=== PATIENT | female | born 1955 | race Caucasian/White ===

== ENCOUNTER 2017-05-09 17:14 | Inpatient (IN) | payer BC ==
--- NOTE | ~2017-05-09 | EKG ---
PATIENT: THEE HINDS UNIT #: [id number] Ventricular Rate: 141 BPM Atrial Rate: 141 BPM P-R Interval: 132 ms QRS Duration: 68 ms Q-T Interval: 278 ms QTC Calculation(Bezet): 425 ms P [place]: 45 degrees Calculated R [place]: 27 degrees Calculated T [place]: 46 degrees Diagnosis Line: Sinus tachycardia Diagnosis Line: Nonspecific ST abnormality Diagnosis Line: Abnormal ECG Diagnosis Line: No previous ECGs available Diagnosis Line: Confirmed by DARION MAEDRA MD ([id number]) on Diagnosis Line: 05/09/2017 10:23:13 PM INTERPRETING MD: FOX
--- NOTE | ~2017-05-09 | HP ---
Unit #: [id number] #: [id number] Patient: THEE HINDS [id number] [address] [place], [place] [address] [id number] I MR#: [id number] NAME: THEE HINDS ROOM: 8[address]15 Age: 61 Sex: F Admission Date: 05/09/2017 : 1955 Attending Physician: Sarah Almodovar M.D. HISTORY AND PHYSICAL CHIEF COMPLAINT Pyelonephritis with sepsis. HISTORY OF PRESENT ILLNESS This pleasant 61-year-old female with AODM and hypertension is admitted for pyelonephritis with sepsis. The patient was well until yesterday when she developed fevers, chills, nausea, and vomiting. She noted some increasing right lower flank pain but no other urinary symptoms except for urinary hesitancy. Her symptoms worsened today around 3 o'clock, and this was also associated with lightheadedness. She presented to the emergency department this evening with a temperature of 103.8. She was bolused with two liters of saline and given Tylenol, Zofran, and one gram of Rocephin after her urinalysis showed significant pyuria. PAST MEDICAL HISTORY 1. Hypothyroidism. 2. Hyperlipidemia. 3. Gastroesophageal reflux disease. 4. Diverticular disease requiring partial colon resection. 5. Adult-onset diabetes mellitus x1 year. 6. Depression. 7. Chronic low back pain with left lumbar radiculopathy. 8. Tachycardia. 9. Cholecystectomy. 10. Bilateral carpal tunnel release. ALLERGIES No known drug allergies. HOME MEDICATIONS 1. Synthroid 0.15 mg daily. 2. Lexapro 10 mg daily. 3. Metformin 500 mg daily. 4. Crestor 40 mg daily. 5. Zanaflex 4 mg b.i.d. 6. Avapro 150 mg daily. 7. Nasonex 2 sprays daily. 8. Neurontin 600 mg b.i.d. to q.i.d. 9. Metoprolol 100 mg b.i.d. 10. Zyrtec 10 mg daily. 11. Aspirin 81 mg daily. Unit #: [id number] #: [id number] Patient: THEE HINDS FAMILY HISTORY Diabetes mellitus. SOCIAL HISTORY The patient lives with her . 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 She is a lifelong nonsmoker and does not drink alcohol. REVIEW OF SYSTEMS Notable for urinary hesitancy, flank pain, fever, sweats, chills, nausea, vomiting, lightheadedness, hypothyroidism, hyperlipidemia, GERD, diverticular disease, diabetes, chronic back pain, depression, tachycardia, and above-mentioned surgeries. All other systems were reviewed and are otherwise negative. PHYSICAL EXAMINATION GENERAL: A pleasant, moderately obese, 61-year-old female currently in no acute distress. She is diaphoretic. VITAL SIGNS: Temperature 103.8, pulse was originally 150, and current heart rate now is about 110, respirations 22, initial blood pressure 156/71, and current blood pressure is 99/50, and O2 saturation 94% on room air. HEENT: Eyes PERRLA. Extraocular muscles are intact. Pharynx is benign. NECK: Supple without adenopathy or thyromegaly. CHEST: Clear. BACK: Low right flank percussion tenderness. CARDIAC: Slightly tachy S1 and S2, without murmur. ABDOMEN: Bowel sounds are present. No hepatosplenomegaly, tenderness, or masses. EXTREMITIES: Without clubbing, cyanosis, or edema. Pedal pulses are present. No ulcers on the feet. NEUROLOGIC: Patient is awake, alert, and oriented. Cranial nerves are intact. Equal strength throughout. DIAGNOSTIC STUDIES ADMISSION LABORATORY: Hematocrit is 41.3 with normal white count and platelet count. SMA-12 with glucose of 133. Normal amylase and lipase. Lactic acid 3.2. ABG with pH of 7.5, PCO2 of 31, PO2 of 60, and O2 saturation 94.2% on room air. Coags are normal. Urinalysis positive leukocyte esterase and nitrites and 1+ protein with 2-5 red cells, 100-200 white cells, and 4+ bacteria. No squamous cells seen. IMAGING: Chest x-ray shows no acute disease. CARDIOLOGY: EKG shows sinus tachycardia, rate 140. ASSESSMENT 1. Pyelonephritis with sepsis. 2. Adult-onset diabetes mellitus. 3. Chronic back pain with lumbar radiculopathy. 4. Gastroesophageal reflux disease. 5. Hypertension. 6. Hyperlipidemia. 7. Hypothyroidism. PLAN 1. Aggressive IV fluids will be continued. 2. Rocephin pending cultures. Unit #: [id number] #: [id number] Patient: THEE HINDS 3. DVT prophylaxis. 4. Florastor. 5. Hold Avapro and metformin. Will decrease Lopressor for now given blood pressure being on the lower side. 6. Further workup depending on above. 1. Dictated by Courtney Soto/griselda TD: 05/09/2017 21:10 JOB #: [id number] HISTORY AND PHYSICAL Page 1 of 1 X Sarah Almodovar MD HISTORY AND PHYSICAL
--- NOTE | ~2017-05-09 | CR72 ---
[facility] A Service of [facility] RADIOLOGY TEXT RESULTS PATIENT: THEE HINDS LOCATION: [facility] 571-01 : 55 UNIT #: [id number] AGE: [address]: Shana Mena MD SEX: F ORDER DR: [id number] [facility] [address] [facility]. [place], [place] [address] [id number] I MR#: [id number] Acc #: [id number] NAME: THEE HINDS : 1955 SEX: F STUDY DATE/TIME: 05/09/2017 18:08 UNIT: [facility] ROOM: [facility] STUDY DESCRIPTION: CR Chest Single View Portable Attending Physician: Shana Mena M.D. Ordering Physician: Chio Torres M.D. Primary Care Physician: No Primary Care Physician MEDICAL IMAGING REPORT This report is preliminary unless electronic signature is present EXAM Portable chest. HISTORY Shortness of air, cough, nausea and fever since yesterday. FINDINGS A single AP portable view of the chest shows both lungs to be clear. The heart is normal in size. The mediastinal contour is normal. No significant bone abnormalities are seen. IMPRESSION Normal portable chest. Dictated by... Alexander Meyers M.D. THIS IS AN ELECTRONICALLY VERIFIED REPORT Alexander Meyers M.D. at 05/10/2017 3:09 PM HUGO/kailash TD: 05/10/2017 08:52 JOB #: [id number] MEDICAL IMAGING REPORT Page 1 of 1 COPY
--- NOTE | ~2017-05-09 | DS ---
Unit #: [id number] #: [id number] Patient: THEE HINDS [id number] [address] [place], [place] [address] [id number] MR#: [id number] NAME: THEE HINDS ROOM: 571 Age: 61 Sex: F Admission Date: 05/09/2017 : 1955 Discharge Date: 05/11/2017 Attending Physician: Shana Mena M.D. Primary Care Physician: No Primary Care Physician DISCHARGE SUMMARY PRIMARY CARE PROVIDER [facility] in [place], [place]. PRINCIPAL DIAGNOSES 1. Sepsis, secondary to Escherichia coli bacteremia. 2. Right-sided pyelonephritis with Escherichia coli. 3. Nausea and vomiting, secondary to #1 and #2, now resolved. 4. Mild hypotension, resolved. 5. Diabetes mellitus type 2 with associated hypoglycemia. 6. Hypothyroidism. 7. Chronic back pain. 8. Obesity. 9. History of hypertension. 10. Gastroesophageal reflux disease. 11. Hyperlipidemia. HOUSE REPAIRER None. PROCEDURE Chest x-ray on May 09, 2017, which was normal. CLINICAL HISTORY AND HOSPITAL COURSE Ms. Hinds is a very nice 61-year-old female, who presents to the emergency department with complaints of feeling ill and having nausea and vomiting. Please refer to H and P for further details. Urinalysis was consistent with significant urinary tract infection and patient was found to have significant costovertebral angle tenderness on examination. She was febrile with temperature greater than 103. Leukocytosis upon presentation was not elevated. She was subsequently admitted. Patient was started on empiric Rocephin for right-sided pyelonephritis. Blood cultures did return gram-negative rods. Urine culture returned with E. coli. I anticipate blood cultures will be similar organisms. Repeat blood cultures on the are negative for growth. Patient's fever has resolved. She is no longer having nausea, vomiting and plan is to discharge her home to complete a course of antibiotic therapy as noted. In regard to patient's diabetes, she was maintained on CCD diet here and sugars have remained stable in the 70s to 100s. She informs me she is having symptoms of hypoglycemia at home and will check her sugars, is low in the 50s or 60s. 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 Unit #: [id number] #: [id number] Patient: THEE HINDS Patient also has a history of hypertension but given some mild hypotension due to her sepsis upon presentation, her blood pressure medication was held. I have instructed her to re-initiate in three to four days. DISCHARGE CONDITION Stable. DISCHARGE STATUS Discharge to home. DISCHARGE MEDICATIONS 1. Omnicef 300 mg p.o. b.i.d. for another 12 days. 2. Nasonex nasal spray two sprays per nostril daily. 3. Neurontin 600 mg four times daily. 4. Lexapro 10 mg daily. 5. Zofran 4 mg p.o. q.6 hours p.r.n. for nausea, vomiting. 6. Zyrtec 10 mg daily. 7. Metoprolol tartrate 100 mg b.i.d. 8. Crestor 40 mg at bedtime. 9. Avapro 150 mg p.o. daily to restart on May 14, 2017. 10. Aspirin 81 mg daily. 11. Nexium 40 mg daily. 12. Zanaflex 4 mg b.i.d. 13. Levothyroxine 150 mcg daily. DISCHARGE INSTRUCTIONS 1. The patient was instructed to follow a heart healthy, CCD diet. Should continue Accu-Cheks as she was doing at home previously. 2. She can increase her activity as tolerated. 3. She has been relieved from work until May 16, 2017. FOLLOWUP Patient will follow up with her primary care provider in [place], [place]. Time spent on discharge today, 33 minutes. Dictated by... Shana Mena M.D. MALORIE/sheyla TD: 05/12/2017 09:05 JOB #: [id number] DISCHARGE SUMMARY Page 1 of 1 X Shana Mena MD X DISCHARGE SUMMARY
[2017-05-09] MEDS ORDERED: LEXAPRO PO (17:32)
[2017-05-09] MEDS ORDERED: LEVOTHYROXINE150 MC1 PO (17:32)
[2017-05-09] MEDS ORDERED: CRESTOR PO (17:41)
[2017-05-09] MEDS ORDERED: METFORMIN PO (17:41)
[2017-05-09] MEDS ORDERED: ZANAFLEX PO (17:41)
[2017-05-09] MEDS ORDERED: AVAPRO PO (17:41)
[2017-05-09] MEDS ORDERED: FLUCONAZOLE150 MG PO (17:41)
[2017-05-09] MEDS ORDERED: NASONEX17 GM (17:41)
[2017-05-09] MEDS ORDERED: ZYRTEC10 M1 PO (17:42)
[2017-05-09] MEDS ORDERED: NEURONTIN600 MG PO (17:42)
[2017-05-09] MEDS ORDERED: LOPRESSOR PO (17:42)
[2017-05-09] MEDS ORDERED: PYRIDIUM PO (17:42)
[2017-05-09] MEDS ORDERED: ASPIRIN81 M2 PO (17:42)
[2017-05-09] MEDS ORDERED: PATIENT'S PHARMACY (17:43)
[2017-05-09 17:47] LABS: ARTERIAL BLD GAS O2 SATURATION 94.2 % (90.0-100.0); ARTERIAL BLOOD GAS CARBOXY HB 1.1 %sat (0.0-9.0); ARTERIAL BLOOD GAS HCO3 24.8 mmol/L; ARTERIAL BLOOD GAS MET HB 0.5 %sat (0.0-2.0); ARTERIAL BLOOD GAS PCO2 31.5 mmHg (35.0-45.0); ARTERIAL BLOOD GAS PO2 60.8 mmHg (80.0-100); ARTERIAL BLOOD GAS pH 7.504 (7.350-7.450)
[2017-05-09 17:48] LABS: ARTERIAL BLOOD GAS ALLEN TEST NORMAL; ARTERIAL BLOOD GAS ART SITE RIGHT RADIAL; ARTERIAL DRAW? YES
[2017-05-09 17:49] LABS: POC - CKMB 1.6 ng/mL (0.0-7.9); POC - TROPONIN <0.05 ng/mL (<=0.05)
[2017-05-09 17:58] LABS: BASOPHIL% 0.5 % (0-2.5); EOSINOPHIL# 0.1 X10e3 (0-0.7); EOSINOPHIL% 1.4 % (0.0-7.0); HEMATOCRIT 41.3 % (35.0-45.0); HEMOGLOBIN 13.9 gm/dL (12.0-16.0); LYMPHOCYTE# 0.9 X10e3 (1.0-3.5); LYMPHOCYTE% 10.8 % (17.0-45.0); MEAN CELL VOLUME 89.8 FL (83-96); MEAN CORPUSCULAR HEMOGLOBIN 30.3 PG (28-34); MEAN CORPUSCULAR HGB CONC 33.8 g/dL (30-36); MEAN PLATELET VOLUME 8.2 FL (6.5-11.5); MONOCYTE# 0.3 X10e3 (0-1.0); MONOCYTE% 3.9 % (3.0-12.0); NEUTROPHIL# 7.3 X10e3 (1.5-7.1); NEUTROPHIL% 83.4 % (40-75); PLATELET COUNT 227 X10e3 (140-420); RED CELL DISTRIBUTION WIDTH 13.8 % (11.0-15.5); WHITE BLOOD COUNT 8.7 X10e3 (4.0-10.5)
[2017-05-09 18:03] LABS: DIFF IND NO
[2017-05-09 18:13] LABS: PARTIAL THROMBOPLASTIN TIME 25.3 SECONDS (23.5-31.3)
[2017-05-09 18:19] LABS: ALBUMIN SERUM 3.7 g/dL (3.5-5.0); BILIRUBIN, DIRECT 0.3 mg/dL (0.0-0.2); BILIRUBIN,INDIRECT 0.6 mg/dL (0.0-0.9); BILIRUBIN,TOTAL 0.9 mg/dL (0.2-2.0); BUN/CREATININE RATIO 15.45; CREATININE SERUM 1.1 mg/dL (0.6-1.4); GLOM FILT RATE Estimated 54.2 mL/min (>60); POTASSIUM 3.7 mmol/L (3.5-5.1); PROTEIN TOTAL SERUM 7.6 g/dL (6.0-8.3)
[2017-05-09 18:40] LABS: URINE SOURCE CATH
[2017-05-09 18:46] LABS: URINE APPEARANCE CLOUDY; URINE BILIRUBIN NEG (NEG); URINE BLOOD 1+ (NEG); URINE COLOR YELLOW; URINE GLUCOSE NEG (NEG); URINE KETONE NEG (NEG); URINE LEUKOCYTE ESTERASE 3+ (NEG); URINE NITRATE POS (NEG); URINE PROTEIN 1+ (NEG); URINE SPECIFIC GRAVITY 1.013 (1.003-1.035)
[2017-05-09 18:48] LABS: CULTURE INDICATED? YES; URINE BACTERIA AUWI 4+ (NEGATIVE); URINE SQUAMOUS EPITHELIAL CELL NONE SEEN /[HPF]; UWBCS1 AUWI 100-200 (0-5)
[2017-05-10] MEDS ORDERED: NEXIUM PO (00:41)
[2017-05-10 05:38] LABS: MEAN CELL VOLUME 92.6 FL (83-96); MEAN CORPUSCULAR HEMOGLOBIN 30.1 PG (28-34); MEAN CORPUSCULAR HGB CONC 32.5 g/dL (30-36); RED CELL DISTRIBUTION WIDTH 13.9 % (11.0-15.5); WHITE BLOOD COUNT 9.3 X10e3 (4.0-10.5)
[2017-05-10 06:27] LABS: CALCIUM SERUM 8.3 mg/dL (8.4-10.2); GLOM FILT RATE Estimated 60.8 mL/min (>60); POTASSIUM 4.4 mmol/L (3.5-5.1)
[2017-05-11 06:25] LABS: HEMATOCRIT 34.7 % (35.0-45.0); HEMOGLOBIN 11.6 gm/dL (12.0-16.0); MEAN CELL VOLUME 90.6 FL (83-96); MEAN CORPUSCULAR HEMOGLOBIN 30.3 PG (28-34); MEAN CORPUSCULAR HGB CONC 33.4 g/dL (30-36); MEAN PLATELET VOLUME 8.3 FL (6.5-11.5); RED BLOOD COUNT 3.83 X10e (3.90-5.30); RED CELL DISTRIBUTION WIDTH 13.9 % (11.0-15.5); WHITE BLOOD COUNT 9.9 X10e3 (4.0-10.5)
[2017-05-11 07:09] LABS: BUN/CREATININE RATIO 12.22; CALCIUM SERUM 8.3 mg/dL (8.4-10.2); CREATININE SERUM 0.9 mg/dL (0.6-1.4); GLOM FILT RATE Estimated 69.1 mL/min (>60); POTASSIUM 3.6 mmol/L (3.5-5.1)
[2017-05-11] MEDS ORDERED: OMNICEF300 MG PO (15:39)
[2017-05-11] MEDS ORDERED: ZOFRAN PO (15:40)
== END 2017-05-11 17:21 | disposition home or self-care (01) | DRG 872 ==
LOC: CED 17:14 → CEDOF 19:40 → CED 19:55 → CEDOF 19:55 → C5C 23:16 → CEDOF 23:16 → C5C 05-10 06:40
PROVIDERS: Internal Medicine; Student in an Organized Health Care Education/Training Program
DX: A41.51 Sepsis due to Escherichia coli [E. coli] (principal); E11.649 Type 2 diabetes mellitus with hypoglycemia without coma; N10 Acute pyelonephritis; R11.2 Nausea with vomiting, unspecified; E03.9 Hypothyroidism, unspecified; M54.9 Dorsalgia, unspecified; E66.9 Obesity, unspecified; I10 Essential (primary) hypertension; K21.9 Gastro-esophageal reflux disease without esophagitis; E78.5 Hyperlipidemia, unspecified; F32.9 Major depressive disorder, single episode, unspecified; M54.16 Radiculopathy, lumbar region
CPT/HCPCS: 36415; 36600; 51701; 71010; 80048; 80076; 81003; 82150; 82553; 82803; 82947; 83605; 83690; 84484; 85025; 85027; 85610; 85730; 87040; 87077; 87086; 87088; 87186; 93005; 96361; 96365; 96375; 99285; C9113; J0696; J1650; J2405